=== PATIENT | male | born 1965 | race Caucasian/White ===

== ENCOUNTER 2016-12-06 00:45 | Inpatient (IN) | payer OTHER ==
[2016-12-06 00:58] VITALS: BP 126/70
[2016-12-06] MEDS ORDERED: Dextrose 10% 1,000 ML IV ONE (01:21)
[2016-12-06] MEDS ORDERED: INSULIN HUMAN REGULAR 100 UNITS/ML UNIT SUBQ ONE (01:24)
[2016-12-06] MEDS ORDERED: Dextrose 10% 1,000 ML IV SCH (01:30)
[2016-12-06] MEDS ORDERED: INSULIN ASPART, RECOMBINANT 100 UNITS/ML SUBQ ONE (01:45)
[2016-12-06] MEDS: INSULIN ASPART, RECOMBINANT 100 UNITS/ML SUBQ SCH ×8 (02:26→09:09)
[2016-12-06 04:56] LABS: MEAN CORPUSCULAR HEMOGLOBIN 30.7 pg (26.0-30.0)
[2016-12-06 05:17] LABS: % BASOPHILS 0.1 % (0.0-2.0); % EOSINOPHILS 0.8 % (0.0-5.0); % LYMPHOCYTES 17.6 % (20.0-50.0); % MONOCYTES 10.5 % (2.0-10.0); HEMATOCRIT 38.6 % (39.0-49.0); HEMOGLOBIN 13.3 gm/dL (13.2-17.3); MEAN CELL VOLUME 89.3 fl (80-99); MEAN CORPUSCULAR HGB CONC 34.3 pg (28.0-36.0); MEAN PLATELET VOLUME 8.4 fl; NEUTROPHILE ABSOLUTE 6.6 Th/cmm (1.8-8.0); PLATELET COUNT 201 Th/cmm (150-400); RED BLOOD COUNT 4.33 Mil/cmm (4.30-5.70); RED CELL DISTRIBUTION WIDTH 12.8 % (11.5-20.0); WHITE BLOOD COUNT 9.4 Th/cmm (4.8-10.8)
[2016-12-06 05:32] LABS: ANION GAP 5.3 (7.0-16.0); BUN - UREA NITROGEN 13 mg/dL (7-25); BUN/CREATININE RATIO 14.4; CALCIUM SERUM 9.2 mg/dL (8.6-10.3); CARBON DIOXIDE 26.8 mEq/L (21.0-31.0); CHLORIDE 107 mEq/L (98-107); CREATININE - SERUM 0.9 mg/dL (0.7-1.3); GLUCOSE 201 mg/dL (70-105); POTASSIUM SERUM 4.1 mEq/L (3.5-5.1); SODIUM SERUM 135 mEq/L (136-145)
[2016-12-06] MEDS ORDERED: Non-Formulary Item 1 EA (Ondansetron Hcl [Zofran*] 4 MG) PO PRN (09:37)
[2016-12-06] MEDS: INSULIN ASPART SLIDING SCALE 100 UNITS/ML UNIT SUBQ SCH ×3 (11:57→20:18)
[2016-12-06] MEDS ORDERED: D5-0.45NS 1,000 ML IV SCH (13:58)
[2016-12-06] MEDS: D5-0.45NS 1,000 ML IV SCH (14:00)
[2016-12-06] MEDS ORDERED: Non-Formulary Item 1 EA (Gabapentin [Gabapentin] 600 MG) PO SCH (14:00)
--- NOTE | 2016-12-06 16:10 | History & Physical ---
ADMIT DATE: 12/06/2016 CHIEF COMPLAINT: Transferred from [facility] for acute hyperglycemia and change in mental status. HISTORY OF PRESENT ILLNESS: This is a 51-year-old male with history of diabetes, hepatitis C, neuropathy, and depression was admitted from [facility] after being found down in the garage with the blood sugar of ____. The patient complains of headaches. No chest pain or shortness of breath. PAST MEDICAL HISTORY: As mentioned in the history of present illness. PAST SURGICAL HISTORY: Status post right ____ surgery. ALLERGIES: CODEINE AND BACTRIM. MEDICATIONS: The patient is on insulin Lantus, NPH, Actos, Reglan, metformin, tramadol, and Celexa. FAMILY HISTORY: Noncontributory. SOCIAL HISTORY: Smokes occasionally, drinks occasionally, and used marijuana in the past. The patient works. The patient has a partner for ____ years with 2 children. REVIEW OF SYSTEMS: GENERAL: The patient complains of not feeling well. HEENT: No blurred vision. NECK: No neck pain. LUNGS: ____ COPD or asthma. HEART: The patient has hypertension, no coronary artery disease. ABDOMEN: The patient with some nausea, no vomiting. GENITOURINARY: The patient denies increased frequency or dysuria. NEUROLOGIC: No headache, seizure or syncope. PSYCHIATRIC: Stable. PHYSICAL EXAMINATION: VITAL SIGNS: Blood pressure 120/68, respirations 14, pulse 78, temperature is ____. GENERAL: Middle-aged male in no acute distress, awake with partner at the bedside. NECK: Supple. No mass. LUNGS: Equal breath sounds, few rhonchi. CARDIOVASCULAR: Heart regular rate and rhythm without appreciable murmurs. ABDOMEN: Soft, nontender. EXTREMITIES: Positive excoriations. NEUROLOGIC: Limited. LABORATORY DATA: WBC 9.4, hemoglobin 13, platelets 201. Sodium 135, potassium 4.1, BUN 30, creatinine 0.9. Blood sugar 182 and ____, last two readings. ASSESSMENT AND PLAN: Altered level of consciousness secondary to acute hyperglycemia, diabetes, hepatitis C, neuropathy, depression. We will correct electrolyte abnormalities. We will hold of the routine insulin for now. The patient ____ fingerstick q. 1 hour as well as D10 and we will make some adjustment. Endocrine has been consulted. We will continue to monitor the patient closely. JOB# [id number]
[2016-12-06] MEDS ORDERED: Non-Formulary Item 1 EA (Metformin Hcl [Glucophage] 1,000 MG) PO SCH (17:00)
--- NOTE | 2016-12-06 20:12 | Admit Criteria Form ---
Admit Criteria Forms - Admit Criteria Diagnosis: DIABETES Clinical Indications for Admission to Inpatient Care (Place 'X' for any and all applicable criteria): Admission is indicated by presence of ALL (if I & II) or ANY ONE (if III or IV) of the following (1)(2)(3)(4): [X]I. Diabetes is uncontrolled as indicated by ANY ONE of the following: [ ]a) Diabetic ketoacidosis as indicated by ALL of the following (8): [ ]i) Hyperglycemia (eg, plasma glucose greater than 200 mg/ dL (11.1 mmol/L)) [ ]ii) Acidosis (eg, arterial pH less than 7.30, serum bicarbonate level less than 15 mEq/L (mmol/L)) [ ]iii) Moderate ketonuria or ketonemia [ ]b) Hyperglycemic hyperosmolar state as indicated by ALL of the following(9)(10): [ ]i) Neurologic dysfunction (eg, stupor, coma, hemiparesis , seizure)(13) [ ]ii) Plasma glucose greater than 600 mg/dL (33.3 mmol/L) [ ]iii) Serum osmolality greater than 320 mOsm/kg (mmol/kg) [X]c) Severe signs or symptoms secondary to hyperglycemia indicated by ANY ONE of the following: [X]i) Altered mental status(10) [ ]ii) Significant hypovolemia or dehydration [ ]iii) Intractable nausea or vomiting [ ]iv) Unexplained fever or severe infection [ ]v) Severe electrolyte abnormality (eg, hypokalemia, hyperkalemia, hypernatremia) [X]II. Management at other levels of care (Also use Diabetes: Observation Care as appropriate) is not feasible because of ANY ONE of the following: [X]a) Condition was not adequately corrected with treatment at other levels of care. [ ]b) Treatment at other levels of care is not appropriate because of condition severity (eg, hyperosmolar coma). [ ]III. Contraindications and/or Inappropriate clinical situations for Observational Care in patients with Diabetes, when ANY ONE of the following is required: [ ]a) Patient require specific diagnostic workup or therapeutic intervention 22 [ ]b) Patient with abnormal vital signs or altered mental status 23 [ ]IV. General contraindications and/or Inappropriate clinical situations for Observational Care in patients with Diabetes, when ANY ONE of the following is required: [ ]a) Prediction of prolongation of LOS based on ANY ONE of the following may be considered as a contraindication for observational care 2, 3, 4, 5, 6, 7, 8, 9, 10, 11 [ ]i) Age > 65 yrs. [ ]ii) Patient arriving by ambulance [ ]iii) Patient with high acuity [ ]iv) Patient requiring vital sign monitoring [ ]v) Patient on IV medication [ ]b) Systolic blood pressures 180mmHg 3,12 [ ]c) Patient with altered mental status including delirium and other alteration of consciousness, (3) [ ]d) Patient whose discharge disposition will be to a custodial home or rehabilitation home should not be managed in Emergency Department Observation Unit. CMS rule requires 3 days hospital stay before such placement.3,13 [ ]e) Patient with failure to thrive due to broad array of etiologies 3,16,17 [ ]f) Inability to ambulate 3,14 Extended stay beyond goal length of stay may be needed for(3)(20): [ ]a) Treatment of precipitating causes [ ]b) Development of hypoglycemia [ ]c) Complications of treatment [ ]d) Complications of decompensated diabetes (eg, acute gastric dilatation, persistent metabolic or neurologic derangement) [ ]e) Active Comorbidities [ ]f) Older patients( 65 years or older) The original [facility] content created by [employer] has been revised. The portions of the content which have been revised are identified through the use of italic text or in bold,and [facility] has neither reviewed nor approved the modified material. All other unmodified content is copyright [facility]. Please see references footnoted in the original [facility] edition 2016 Admit Criteria Met?: Yes
[2016-12-07] MEDS: INSULIN ASPART SLIDING SCALE 100 UNITS/ML UNIT SUBQ SCH ×5 (00:05→20:50)
[2016-12-07 05:43] LABS: ALB/GLOB RATIO 1.1 (1.0-1.8); ALKALINE PHOSPHATASE 66 U/L (34-104); ANION GAP 8.8 (7.0-16.0); BILIRUBIN,TOTAL 0.5 mg/dL (0.3-1.0); BUN - UREA NITROGEN 12 mg/dL (7-25); CALCIUM SERUM 9.4 mg/dL (8.6-10.3); CARBON DIOXIDE 27.1 mEq/L (21.0-31.0); CHLORIDE 106 mEq/L (98-107); GLUCOSE 163 mg/dL (70-105); POTASSIUM SERUM 3.9 mEq/L (3.5-5.1); SGOT 42 U/L (13-39); SGPT/ALT 110 U/L (7-52); SODIUM SERUM 138 mEq/L (136-145)
[2016-12-07 05:46] LABS: % EOSINOPHILS 1.7 % (0.0-5.0); % LYMPHOCYTES 24.8 % (20.0-50.0); % MONOCYTES 9.8 % (2.0-10.0); % NEUTROPHILS 63.7 % (40.0-80.0); HEMATOCRIT 39.6 % (39.0-49.0); HEMOGLOBIN 13.7 gm/dL (13.2-17.3); MEAN CELL VOLUME 89.2 fl (80-99); MEAN CORPUSCULAR HEMOGLOBIN 30.9 pg (26.0-30.0); MEAN CORPUSCULAR HGB CONC 34.7 pg (28.0-36.0); MEAN PLATELET VOLUME 8.5 fl; NEUTROPHILE ABSOLUTE 4.7 Th/cmm (1.8-8.0); PLATELET COUNT 200 Th/cmm (150-400); RED BLOOD COUNT 4.44 Mil/cmm (4.30-5.70)
[2016-12-07 05:57] LABS: WHITE BLOOD COUNT 7.3 Th/cmm (4.8-10.8)
[2016-12-07] MEDS: D5-0.45NS 1,000 ML IV SCH (06:38)
--- NOTE | 2016-12-07 14:02 | Internal Medicine Prog Note ---
Internal Medicine Subjective - Subjective Patient seen and examined:: with staff, chart reviewed Patient is:: awake, verbal, interactive Patient Complaints of:: congestion Per staff patient is:: no adverse event, eating well Internal Medicine Objective - Results Result Diagrams: 12/07/16 04:40 12/07/16 04:40 Recent Labs: Laboratory Last Values WBC 7.3 Th/cmm (4.8-10.8) D 12/07/16 04:40 RBC 4.44 Mil/cmm (4.30-5.70) 12/07/16 04:40 Hgb 13.7 gm/dL (13.2-17.3) 12/07/16 04:40 Hct 39.6 % (39.0-49.0) 12/07/16 04:40 MCV 89.2 fl (80-99) 12/07/16 04:40 MCH 30.9 pg (26.0-30.0) H 12/07/16 04:40 MCHC Differential 34.7 pg (28.0-36.0) 12/07/16 04:40 RDW 13.0 % (11.5-20.0) 12/07/16 04:40 Plt Count 200 Th/cmm (150-400) 12/07/16 04:40 MPV 8.5 fl 12/07/16 04:40 Neutrophils % 63.7 % (40.0-80.0) 12/07/16 04:40 Lymphocytes % 24.8 % (20.0-50.0) 12/07/16 04:40 Monocytes % 9.8 % (2.0-10.0) 12/07/16 04:40 Eosinophils % 1.7 % (0.0-5.0) 12/07/16 04:40 Basophils % 0.0 % (0.0-2.0) 12/07/16 04:40 Sodium 138 mEq/L (136-145) 12/07/16 04:40 Potassium 3.9 mEq/L (3.5-5.1) 12/07/16 04:40 Chloride 106 mEq/L (98-107) 12/07/16 04:40 Carbon Dioxide 27.1 mEq/L (21.0-31.0) 12/07/16 04:40 Anion Gap 8.8 (7.0-16.0) 12/07/16 04:40 BUN 12 mg/dL (7-25) 12/07/16 04:40 Creatinine 1.0 mg/dL (0.7-1.3) 12/07/16 04:40 Est GFR ( Amer) > 60.0 ml/min (>90) 12/07/16 04:40 Est GFR (Non-Af Amer) > 60.0 ml/min 12/07/16 04:40 BUN/Creatinine Ratio 12.0 12/07/16 04:40 Glucose 163 mg/dL (70-105) H 12/07/16 04:40 POC Glucose 307 MG/DL (70 - 105) H 12/07/16 12:08 Hemoglobin A1c % 6.3 % (4.0-6.0) H 12/06/16 04:45 Calcium 9.4 mg/dL (8.6-10.3) 12/07/16 04:40 Total Bilirubin 0.5 mg/dL (0.3-1.0) 12/07/16 04:40 AST 42 U/L (13-39) H 12/07/16 04:40 ALT 110 U/L (7-52) H 12/07/16 04:40 Alkaline Phosphatase 66 U/L (34-104) 12/07/16 04:40 Total Protein 7.1 gm/dL (6.0-8.3) 12/07/16 04:40 Albumin 3.7 gm/dL (4.2-5.5) L 12/07/16 04:40 Globulin 3.4 gm/dL 12/07/16 04:40 Albumin/Globulin Ratio 1.1 (1.0-1.8) 12/07/16 04:40 - Physical Exam Vitals and I&O: Vital Signs Temp 98.3 F 12/07/16 06:00 Pulse 76 12/07/16 07:00 Resp 12 12/07/16 07:00 BP 159/83 12/07/16 07:00 Pulse Ox 98 12/07/16 07:00 Intake & Output 12/06/16 12/07/16 12/07/16 18:59 06:59 18:59 Intake Total 500 1198 Output Total 1800 1250 Balance -1300 -52 Intake: Intake, IV Amount 998 D5-0.45NS 1,000 ml @ 60 998 mls/hr IV .[id number] [facility] Rx #:[id number] Oral 500 200 Output: Urine 1800 1250 Other: # Bowel Movements 0 Active Medications: Current Medications Acetaminophen (Tylenol) 650 mg PO Q4HR PRN PRN Reason: Pain or Fever >101 Stop: 02/04/17 13:31 Last Admin: 12/06/16 13:49 Dose: 650 mg Citalopram Hydrobromide (Celexa) 20 mg PO DAILY [facility] PRN Reason: Protocol Stop: 02/05/17 08:59 Last Admin: 12/07/16 09:00 Dose: 20 mg Diphenhydramine HCl (Benadryl) 25 mg PO TID PRN PRN Reason: Itching Stop: 02/04/17 20:48 Gabapentin (Neurontin) 600 mg PO TID [facility] Stop: 02/04/17 13:59 Last Admin: 12/07/16 09:01 Dose: 600 mg Dextrose/Sodium Chloride (D5-0.45ns) 1,000 mls @ 60 mls/hr IV .[id number] [facility] Stop: 02/04/17 13:59 Last Admin: 12/07/16 06:38 Dose: 60 mls/hr Insulin Aspart (Novolog Insulin Sliding Scale) 0 units SUBQ Q4HR [facility] PRN Reason: Protocol Stop: 02/04/17 11:59 Last Admin: 12/07/16 12:14 Dose: 8 units Lorazepam (Ativan) 1 mg PO BID [facility] PRN Reason: Protocol Stop: 02/04/17 16:59 Last Admin: 12/07/16 09:00 Dose: 1 mg Metformin HCl (Glucophage) 1,000 mg PO BID [facility] Stop: 02/04/17 16:59 Last Admin: 12/07/16 09:01 Dose: 1,000 mg Metoclopramide HCl (Reglan) 10 mg PO TID [facility] Stop: 02/04/17 13:59 Last Admin: 12/07/16 09:00 Dose: 10 mg Ondansetron HCl (Zofran Odt) 4 mg PO Q6HR PRN PRN Reason: NAUSEA Stop: 02/04/17 09:50 Pioglitazone HCl (Actos) 30 mg PO DAILY [facility] Stop: 02/05/17 08:59 Tramadol HCl (Ultram) 50 mg PO TID PRN PRN Reason: Pain (Moderate) Stop: 02/04/17 13:59 General: alert HEENT: NC/AT, PERRLA Neck: Supple, No JVD Lungs: CTAB Cardiovascular: RRR, Normal S1, Normal S2 Abdomen: soft non-tender, globular, non-distended Extremities: excoriation Neurological: no change Internal Medicine Assmt/Plan - Assessment Assessment: Altered level of consciousness secondary to acute hypoglycemia, diabetes, hepatitis C, neuropathy, depression - Plan Plan: cont on iv hydration d5 awaiting endocrine counsult and psych will transfer to tele cpm eulalia jj
[2016-12-08] MEDS: D5-0.45NS 1,000 ML IV SCH (02:51)
--- NOTE | 2016-12-08 03:04 | Consultation ---
DATE OF CONSULTATION: 12/07/2016 The patient was seen, chart was reviewed, discussed with staff. HISTORY OF PRESENT ILLNESS: The patient is a 51-year-old male with a history of anxiety and depression and multiple medical issues, was found altered, ended up on a medical floor because of his blood sugar. The patient was interviewed today, reports history of depression, but he has been doing well overall, he is taking Celexa and lorazepam. The patient did not have any wishes, did not have any suicidal thoughts. 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 PAST PSYCHIATRIC HISTORY: History of suicide attempt when he was 21. The patient has a history of depression and the patient said he is looking to see a psychiatrist on an outpatient basis. PAST MEDICAL HISTORY: As per H and P. PSYCHOSOCIAL HISTORY: The patient is unemployed at this time, he used to work as a guallpa, his girlfriend is supportive. The patient denied illicit drug use, but he says he is ____ some marijuana, which helps him with his anxiety. MENTAL STATUS EXAMINATION: The patient was cooperative, makes fair eye contact. Speech was fluent, not pressured. Affect is slightly anxious, but not depressed. Thought process is logical. No other visual hallucinations. No paranoid delusions. Alert, awake, oriented x 3. No suicidal thoughts, no thoughts of harming himself or others. The patient is [place] for safety clearly. ASSESSMENT: Major depressive disorder, recurrent, [id number]. PLAN: We will continue Celexa 20 mg daily at this time, Ativan 1 mg p.o. b.i.d. The patient may return home and to follow up with outpatient services, the patient was educating ____ and may need to follow up and see a therapist and a psychiatrist, the patient appears to be receptive. Thank you for the consultation, Dr. Santamaria. JOB# [id number]
[2016-12-08 05:24] LABS: ALB/GLOB RATIO 1.2 (1.0-1.8); BILIRUBIN,TOTAL 0.5 mg/dL (0.3-1.0)
[2016-12-08 05:27] LABS: BILIRUBIN,DIRECT 0.05 mg/dL (0.0-0.2)
[2016-12-08] MEDS: INSULIN ASPART SLIDING SCALE 100 UNITS/ML UNIT SUBQ SCH ×2 (06:47→12:08)
--- NOTE | 2016-12-08 10:18 | Diagnostic Imaging Report ---
Right tib-fib 2 views Indication: Pain rule out fracture Comparison: none Findings: Mild degenerative changes are seen greatest at the ankle. Minimal distal Achilles spurring is noted. No evidence of acute fracture or significant focal soft tissue swelling. Impression: No evidence of an acute fracture. In the setting of trauma, if clinical symptoms persist and there is continued concern for an occult fracture, follow up exams in 5-7 days is suggested.
--- NOTE | 2016-12-08 10:25 | Diagnostic Imaging Report ---
Head CT without intravenous contrast Indication: pain Comparison: None Technique: Axial images were obtained from the vertex to the skull base without IV contrast. Coronal reconstructions were made. Total DLP: 617, CTDI34.2 FINDINGS: Images of the brain obtained without contrast demonstrate no acute hemorrhage. No mass lesions identified. The ventricles and basal cisterns are patent. The aaron-white matter differentiation is preserved. There is no mass effect or midline shift. No skull fractures identified. No soft tissue swelling. The paranasal sinuses are clear. IMPRESSION: No acute intracranial abnormality.
--- NOTE | 2016-12-08 10:28 | Diagnostic Imaging Report ---
CT cervical spine without IV contrast HISTORY: Trauma COMPARISON: None Technique: Axial images were obtained from the skull base to the upper thoracic spine without IV contrast. Multiplanar reconstructions were made. Total DLP: 560, CTDI26 Findings: Evaluation of the cervical thoracic spine is limited due to motion. Images of the cervical spine obtained without contrast demonstrate no evidence of acute fracture. There is 2 mm anterolisthesis of the 7 on T1 likely due to facet arthropathy. Moderate generalized degenerative changes are seen with mild multilevel marginal osteophytic spurring. No prevertebral soft tissue swelling. The lung apices are clear. IMPRESSION: No evidence of an acute fracture. 2 mm anterolisthesis of C7 on T1 likely due to facet arthropathy. Degenerative changes.
--- NOTE | 2016-12-09 02:29 | Discharge Summary ---
DATE OF DISCHARGE: 12/08/2016 CHIEF COMPLAINT: Transfer from [facility] for acute hypoglycemia/low blood sugar. FINAL DIAGNOSES: 1. Acute hypoglycemia. 2. Altered level of consciousness secondary to the above. 3. Diabetes. 4. Hepatitis C. 5. Neuropathy. 6. Depression. HISTORY: The patient is a 51-year-old male with history of diabetes, hepatitis C, neuropathy, depression, was found in ____ garage, blacked out with blood sugar of ____. The patient was seen in the ER and given multiple D50s, but the patient's blood sugar kept dropping down below 40s. The patient was admitted for further management and transferred for acute care ____. PHYSICAL EXAMINATION: VITAL SIGNS: Blood pressure 135/70, respiration 19, pulse 80, and temperature 98.0. GENERAL: Middle-age male in no acute distress. NECK: Supple. LUNGS: Equal breath sounds, otherwise clear to auscultation. HEART: Regular rate and rhythm without appreciable murmurs. ABDOMEN: Soft and nontender. EXTREMITIES: Positive excoriations. HOSPITAL COURSE: The patient was admitted to ICU, given D10, and routine insulin were held. The patient continued to be hypoglycemic. The patient was seen by Dr. Leblanc for Endocrinology and Dr. Aponte for Psych. The patient's condition has improved. Blood sugar has remained between 100-200 and the patient is back to his baseline. DISCHARGE INSTRUCTIONS: The patient will hold routine insulin. Continue oral hypoglycemics. The patient is to follow up with his primary care doctor as well as provider relations consultant upon discharge. [facility]# [id number]
== END 2016-12-08 16:00 | DRG 420 ==
LOC: ICU 00:45
PROVIDERS: ADMIT Internal Medicine; ATTEND Internal Medicine
DX: E11.649 Type 2 diabetes mellitus with hypoglycemia without coma (principal); F33.1 Major depressive disorder, recurrent, moderate; E11.41 Type 2 diabetes mellitus with diabetic mononeuropathy; B19.20 Unspecified viral hepatitis C without hepatic coma; F41.9 Anxiety disorder, unspecified; F17.210 Nicotine dependence, cigarettes, uncomplicated; Z88.5 Allergy status to narcotic agent; Z88.2 Allergy status to sulfonamides; Z88.8 Allergy status to other drugs, medicaments and biological substances; Z79.4 Long term (current) use of insulin
CPT/HCPCS: 36415-UA; 70450-TC; 72125-TC; 73590-TC-RT; 80048-TC; 80053-TC; 80076-TC; 82533-90; 82607-90; 82948-90; 83036-90; 84439-90; 84443-TC; 85025-TC; J1815; Q0162; Z7610